=== PATIENT | male | born 1945 | race African-American/Black ===

== ENCOUNTER 2018-12-23 10:13 | Emergency (ER) | payer MEDICARE ==
[2018-12-23] MEDS ORDERED: Acetaminophen 500 MG TAB ONE (11:30)
[2018-12-23] MEDS ORDERED: Ketorolac Tromethamine 30 MG/ML VIAL ONE (11:30)
[2018-12-23] MEDS ORDERED: Diazepam 5 MG TAB ONE (11:30)
--- NOTE | 2018-12-23 11:37 | CT ---
EXAM: CT Lumbar Spine WO Con PROVIDED CLINICAL HISTORY: Back pain COMPARISON: None FINDINGS: 5 nonrib-bearing lumbar-type vertebral bodies are demonstrated. Lumbar alignment appears normal. Vert ebral body heights appear preserved. No evidence for fracture. No lytic or blastic lesions are seen. No paravertebral soft tissue swelling is evident. There is a broad-based disc bulge at L3-4 with potential for mild-moderate central canal stenosis and moderate bilateral foraminal narrowing. There is a broad-based disc bulge at L4-5 with accompanying osteophyte. There is potential for at maranda st moderate central canal stenosis. Bilateral foraminal narrowing, potentially severe on the left. The visualized extraspinal soft tissues appear unremarkable with the exception of a partially visuali zed left renal cyst and atherosclerotic vascular calcifications. IMPRESSION: No evidence for an acute osseous abnormality.
== END 2018-12-23 14:50 | disposition home or self-care (01) ==
LOC: ERS 10:13
DX: M51.26 Other intervertebral disc displacement, lumbar region (principal); I10 Essential (primary) hypertension
CPT/HCPCS: 72131; 96372; J1885

== ENCOUNTER 2019-10-31 10:17 | Emergency (ER) | payer MEDICARE, OTHER ==
[2019-11-01 13:03] LABS: SARS-CoV-2 MS2 Positive; SARS-CoV-2 N Gene Negative; SARS-CoV-2 S Gene Negative; SARS-CoV-2 orf1ab Negative
== END 2019-10-31 10:30 | disposition home or self-care (01) ==
LOC: ERS 10:17
DX: Z20.828 Contact with and (suspected) exposure to other viral communicable diseases (principal); I10 Essential (primary) hypertension
CPT/HCPCS: 99283; U0003; 87635

== ENCOUNTER 2021-02-13 23:05 | Emergency (ER) | payer OTHER, MEDICARE ==
[2021-02-13] MEDS ORDERED: Morphine 4 MG/ML VIAL ONE (23:48)
[2021-02-13] MEDS ORDERED: Ondansetron PF 4 MG/2 ML Vial ONE (23:48)
[2021-02-14 00:18] LABS: #Eosinphils 0.1 thou/uL (0.0-0.7); #Lymphocytes 1.5 thou/uL (1.20-3.40); #Monocytes 1.3 thou/uL (0.11-0.59); %Basophils 0.3 % (0.0-1.0); %Eosinophils 1.3 % (0.0-10.0); %Lymphocytes 13.7 % (21.0-51.0); %Monocytes 11.9 % (0.0-10.0); %Neutrophils 72.7 % (42.0-75.0); Hemoglobin 16.1 g/dL (14.0-18.0); Mean Corpuscular HGB CONC 33.9 g/dL (32.0-36.0); Mean Platelet Volume 8.5 fL (7.4-10.4); Platelet Count 167 thou/uL (130-400); RBC Distribution Width 11.5 % (11.5-14.5); Red Blood Cell (RBC) Count 4.61 mill/uL (4.70-6.10); White Blood Cell (WBC) Count 11.1 thou/uL (4.8-10.8)
[2021-02-14 00:47] LABS: ALT (SGPT) 28 U/L (8-55); AST (SGOT) 28 U/L (5-34); Albumin 4.1 g/dL (3.4-4.8); Alkaline Phosphatase 62 U/L (40-110); Anion Gap 14 mmol/L (10-20); BUN (Urea Nitrogen) 14 mg/dL (8.4-25.7); Bilirubin, Total 0.5 mg/dL (0.2-1.2); Calc. Creatinine Clearance 0 mL/min (70-130); Calcium 9.5 mg/dL (7.8-10.44); Carbon Dioxide 26 mmol/L (23-31); Chloride 100 mmol/L (98-107); Globulin 3.4 g/dL (2.4-3.5); Glucose 124 mg/dL (83-110); Lipase 179 U/L (8-78); Potassium 4.3 mmol/L (3.5-5.1); Protein, Total 7.5 g/dL (5.8-8.1); Sodium 136 mmol/L (136-145)
[2021-02-14 02:44] LABS: Bacteria/HPF None Seen HPF (None Seen); Bilirubin Negative (Negative); Blood, Urine Trace (Negative); Clarity Clear (Clear); Glucose, Urine (Dipstick) Normal (Negative); Ketone, Urine Negative (Negative); Leukocyte Negative Leu/uL (Negative); Mucous/LPF 1+ LPF (<2+); Nitrite Negative (Negative); Protein, Urine (Dipstick) 10 mg/dL (Neg-Trace); RBC/HPF 0-3 HPF (0-3); Specific Gravity, Urine 1.051 (1.002-1.036); Squamous Epithelial 0-3 HPF (0-3); Urobilinogen Normal mg/dL (Less than 2); WBC/HPF 0-3 HPF (0-3)
[2021-02-14] MEDS ORDERED: Iopamidol-370 76% 500 ML 1 ML ONE (09:21)
== END 2021-02-14 03:05 | disposition home or self-care (01) ==
LOC: ERS 23:05
DX: M54.6 Pain in thoracic spine (principal); R10.9 Unspecified abdominal pain; R10.816 Epigastric abdominal tenderness; M25.561 Pain in right knee; R00.0 Tachycardia, unspecified; R51.9 Headache, unspecified; R05.9 Cough, unspecified; I10 Essential (primary) hypertension; Z79.899 Other long term (current) drug therapy
CPT/HCPCS: 71045; 74177; 80053; 81003; 81015; 83690; 84484; 85025; 93005; 96374; 96375; J2270; J2405; Q9967

== ENCOUNTER 2021-05-19 17:46 | Emergency (ER) | payer MEDICARE, OTHER ==
[2021-05-19 18:51] LABS: #Eosinphils 0.4 thou/uL (0.0-0.7); #Lymphocytes 1.8 thou/uL (1.20-3.40); #Monocytes 0.6 thou/uL (0.11-0.59); #Neutrophils 5.1 thou/uL (1.40-6.50); %Basophils 0.4 % (0.0-1.0); %Eosinophils 4.8 % (0.0-10.0); %Lymphocytes 22.9 % (21.0-51.0); %Monocytes 7.8 % (0.0-10.0); %Neutrophils 64.1 % (42.0-75.0); Hemoglobin 15.1 g/dL (14.0-18.0); Mean Corpuscular Hemoglobin 34.4 pg (27.0-31.0); Mean Platelet Volume 9.1 fL (7.4-10.4); Platelet Count 127 thou/uL (130-400); RBC Distribution Width 12.5 % (11.5-14.5); Red Blood Cell (RBC) Count 4.38 mill/uL (4.70-6.10); White Blood Cell (WBC) Count 7.9 thou/uL (4.8-10.8)
[2021-05-19 19:14] LABS: ALT (SGPT) 26 U/L (8-55); AST (SGOT) 20 U/L (5-34); Albumin 4.2 g/dL (3.4-4.8); Anion Gap 13 mmol/L (10-20); BUN (Urea Nitrogen) 15 mg/dL (8.4-25.7); Bilirubin, Total 0.3 mg/dL (0.2-1.2); Calc. Creatinine Clearance 0 mL/min (70-130); Calcium 9.3 mg/dL (7.8-10.44); Carbon Dioxide 22 mmol/L (23-31); Chloride 107 mmol/L (98-107); Glucose 128 mg/dL (83-110); Potassium 4.2 mmol/L (3.5-5.1); Protein, Total 7.2 g/dL (5.8-8.1); Sodium 138 mmol/L (136-145)
[2021-05-19] MEDS ORDERED: Acetaminophen 500 MG TAB ONE (19:15)
[2021-05-19] MEDS ORDERED: Metoclopramide HCl 10 MG/2 ML VIAL ONE (19:15)
[2021-05-19 19:25] LABS: Alkaline Phosphatase 57 U/L (40-110)
[2021-05-19] MEDS ORDERED: Metoclopramide HCl 10 MG TAB ONE (19:31)
== END 2021-05-19 19:50 | disposition home or self-care (01) ==
LOC: ERS 17:46
DX: R51.9 Headache, unspecified (principal); I10 Essential (primary) hypertension
CPT/HCPCS: 36415; 71045; 80053; 84484; 85025; 93005; 94760; J2765

== ENCOUNTER 2023-02-24 03:49 | Emergency (ER) | payer OTHER ==
[2023-02-24] MEDS ORDERED: Ketorolac Tromethamine 30 MG/ML VIAL ONE (04:07)
[2023-02-24] MEDS ORDERED: Dexamethasone 10 MG/ML VIAL ONE (04:07)
== END 2023-02-24 04:41 | disposition home or self-care (01) ==
LOC: ERS 03:49
DX: M10.9 Gout, unspecified (principal); I10 Essential (primary) hypertension; Z79.899 Other long term (current) drug therapy
CPT/HCPCS: 96372; J1100; J1885

== ENCOUNTER 2023-05-30 10:16 | Emergency (ER) | payer OTHER ==
[2023-05-30] MEDS ORDERED: Ketorolac Tromethamine 30 MG (1 mL) VIAL ONE (11:16)
== END 2023-05-30 12:25 | disposition home or self-care (01) ==
LOC: ERS 10:16
DX: M54.50 Low back pain, unspecified (principal); I10 Essential (primary) hypertension; M10.9 Gout, unspecified; Z79.899 Other long term (current) drug therapy
CPT/HCPCS: 96372; J1885